=== PATIENT | female | born 1940 | race Caucasian/White ===

== ENCOUNTER 2016-11-29 14:14 | Outpatient (CLI) | payer MEDICARE, OTHER ==
[2016-11-29 19:09] LABS: BILIRUBIN,URINE NEGATIVE (NEGATIVE); PH,URINE 6.5 PH (5.0-7.5)
[2016-11-29 19:23] LABS: UR CULTURE IF IND INDICATED; WBC,URINE 0-3 /HPF (0-5)
== END 2016-11-29 14:15 | disposition home or self-care (01) ==
LOC: LAB.F 14:14
PROVIDERS: ATTEND Nurse Practitioner Family
DX: N39.0 Urinary tract infection, site not specified (principal)
CPT/HCPCS: 81001; 87086

== ENCOUNTER 2018-11-26 20:45 | Emergency (ER) | payer MEDICARE, OTHER ==
--- NOTE | 2018-11-26 21:37 | ED Physician Documentation ---
PD HPI URI - Stated complaint Stated Complaint: FEVER - Chief complaint Chief Complaint: Heent - History obtained from History obtained from: Patient - History of Present Illness Timing - onset: How many days ago (5-6) Timing duration: Days (5-6) Timing details: Abrupt onset (She states she got abruptly sick about 5 or 6 days ago with fevers cough general weakness and body aches. She had not been traveling. She has had persistent fevers and productive cough. She has had a sore throat as well. She denies any dyspnea on her wheeze. She has not had any vomiting or diarrhea. She denies headache.) Associated symptoms: Fever, Nasal congestion, Sore throat, Productive cough Contributing factors: No: Sick contact, Travel, Immunocompromised, COPD / asthma Improves by: Medication (nyquil and tylenol help) Worsened by: Activity Similar symptoms before: Has not had sx before Recently seen: Not recently seen Review of Systems Constitutional: reports: Fever, Chills, Myalgias, Fatigue Nose: reports: Congestion. denies: Rhinorrhea / runny nose Throat: reports: Sore throat Cardiac: denies: Chest pain / pressure Respiratory: reports: Cough. 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 HEENT: Tonsil/Adenoidectomy - Present Medications Home Medications: Ambulatory Orders Medication Instructions Recorded Confirmed Cephalexin [Keflex] 500 mg PO TID 7 Days capsule 03/03/15 Docusate Sodium 100Mg Capsule 100 mg PO BID #20 capsule 03/03/15 [Colace] Benzonatate [Tessalon Perle] 100 mg PO TID PRN #30 capsule 11/26/18 Cephalexin [Keflex] 500 mg PO TID #20 capsule 11/26/18 dexAMETHasone [Decadron] 4 mg PO DAILY #5 tablet 11/26/18 - Allergies Allergies/Adverse Reactions: Allergies Allergy/AdvReac Type Severity Reaction Status Date / Time No Known Drug Allergies Allergy Verified 11/26/18 20:54 - Social History Does the pt smoke?: No Smoking Status: Never smoker Does the pt drink ETOH?: No Does the pt have substance abuse?: No PD ED PE NORMAL - Vitals Vital signs reviewed: Yes - General General: Alert and oriented X 3, No acute distress, Well developed/nourished - HEENT HEENT: Ears normal, Pharynx benign - Neck Neck: Supple, no meningeal sign, No adenopathy - Cardiac Cardiac: RRR, No murmur - Respiratory Respiratory: Clear bilaterally - Abdomen Abdomen: Soft, Non tender - Derm Derm: Normal color, Warm and dry, No rash - Neuro Neuro: Alert and oriented X 3, No motor deficit, Normal speech Results - Vitals Vitals: Vital Signs - 24 hr 11/26/18 20:48 Temperature 37.1 C Heart Rate 75 Respiratory 18 Rate Blood Pressure 133/70 H O2 Saturation 95 Oxygen O2 Source Room air - Labs Labs: Laboratory Tests 11/26/18 20:56 Group A Strep Rapid Negative PD MEDICAL DECISION MAKING - ED course Complexity details: considered differential (Clinically low risk for pneumonia with normal lung sounds and adequate oxygenation. It does sound mainly bronchial. We discussed likely viral causes versus bacterial. We will treat her symptoms with Decadron and Tessalon.), d/w patient Departure - Departure Disposition: 01 Home, Self Care Clinical Impression: Upper respiratory infection Qualifiers: URI type: unspecified URI Qualified Code(s): J06.9 - Acute upper respiratory infection, unspecified Condition: Stable Record reviewed to determine appropriate education?: Yes Instructions: ED Upper Resp Infec Abx Tx Follow-Up: KENNEDI LYNNE MD [Primary Care Provider] - Prescriptions: Benzonatate [Tessalon Perle] 100 mg PO TID PRN #30 capsule PRN Reason: Cough Cephalexin [Keflex] 500 mg PO TID #20 capsule dexAMETHasone [Decadron] 4 mg PO DAILY #5 tablet Comments: Hydrated. Continue Tylenol or ibuprofen for fevers. Continue the NyQuil as you have been to help with sleep and cough. Add Decadron steroid for inflammation of the airways to improve breathing and decrease coughing. Add Tessalon if needed for cough and this should not be sedating. Add cephalexin antibiotic. Much of the time these types of illnesses are viral and the antibiotics will not help. Given your duration of symptoms and degree of fever, it does raise consideration of bacterial causes instead and so we can go with antibiotic as well.
[2018-11-26] MEDS ORDERED: CHERRY SYRUP 10 ML UDC PO ONE (21:53)
[2018-11-26] MEDS ORDERED: BENZONATATE 100 MG CAPSULE PO STA (21:53)
[2018-11-26] MEDS ORDERED: cephALEXin 250 MG CAPSULE PO STA (21:53)
[2018-11-26] MEDS ORDERED: DEXAMETHASONE 10 MG/ML VIAL PO STA (21:53)
[2018-11-26 22:39] VITALS: BP 91/53
== END 2018-11-26 22:30 | disposition home or self-care (01) ==
LOC: ED 20:45
DX: J06.9 Acute upper respiratory infection, unspecified (principal); I10 Essential (primary) hypertension
CPT/HCPCS: 87070; 87430; 99283; 99284; A9270

== ENCOUNTER 2020-01-10 07:00 | Outpatient (CLI) | payer MEDICARE, OTHER | END 2020-01-10 23:59 | disposition home or self-care (01) | LOC: LAB.R 07:00 | PROVIDERS: ATTEND Emergency Medicine | DX: R31.9 Hematuria, unspecified (principal) | CPT/HCPCS: 87086; 87181 ==

== ENCOUNTER 2020-12-25 08:00 | Outpatient (CLI) | payer MEDICARE, OTHER | END 2020-12-25 23:59 | disposition home or self-care (01) | LOC: LAB.S 08:00 | PROVIDERS: ATTEND Physician Assistant Medical | DX: R31.9 Hematuria, unspecified (principal) | CPT/HCPCS: 87086 ==

== ENCOUNTER 2021-08-14 16:56 | Emergency (ER) | payer MEDICARE, OTHER ==
--- NOTE | 2021-08-14 17:30 | ED Physician Documentation ---
History of Present Illness - Stated complaint Stated Complaint: BLURRY VISION,RT SHOULDER PX - Chief complaint Chief Complaint: Heent - Additonal information Additional information: 81-year-old female presents to the emergency department for evaluation of blurry vision. She reports that she had cataract surgery 3 years ago and has had normal vision since. Over the last week she has noticed progressively blurry vision in the left eye and over the last 2 days blurry vision in the right eye. No falls or trauma. No eye pain. She does have a history of headaches and migraines but none recently and no hemiplegic migraine history. She denies diplopia no fevers. 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 She denies loss of peripheral vision but she is unsure what the name of her brain disorder is. She is followed by ophthalmology at the [facility]. Review of Systems Constitutional: reports: Reviewed and negative Eyes: reports: Decreased vision. denies: Loss of vision, Photophobia, Discharge, Irritation Ears: reports: Reviewed and negative Nose: reports: Reviewed and negative Throat: reports: Reviewed and negative GI: reports: Reviewed and negative : reports: Reviewed and negative Skin: reports: Reviewed and negative Musculoskeletal: reports: Reviewed and negative Neurologic: denies: Generalized weakness, Focal weakness, Numbness, Difficulty speaking, Near syncope, Confused, Altered mental status, Headache, LOC Psychiatric: reports: Reviewed and negative PD PAST MEDICAL HISTORY - Past Medical History Cardiovascular: Hypertension Respiratory: CPAP use Endocrine/Autoimmune: None GI: None : None HEENT: None Psych: None Musculoskeletal: None Derm: None - Past Surgical History Past Surgical History: Yes Ortho: Arthroscopic surgery, 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 HEENT: Tonsil/Adenoidectomy - Present Medications Home Medications: Ambulatory Orders Medication Instructions Recorded Confirmed Cephalexin [Keflex] 500 mg PO TID 7 Days capsule 03/03/15 Docusate Sodium 100Mg Capsule 100 mg PO BID #20 capsule 03/03/15 [Colace] Benzonatate [Tessalon Perle] 100 mg PO TID PRN #30 capsule 11/26/18 cephALEXin [Keflex] 500 mg PO TID #20 capsule 11/26/18 dexAMETHasone [Decadron] 4 mg PO DAILY #5 tablet 11/26/18 - Allergies Allergies/Adverse Reactions: Allergies Allergy/AdvReac Type Severity Reaction Status Date / Time No Known Drug Allergies Allergy Verified 08/14/21 17:04 - Social History Does the pt smoke?: No Smoking Status: Never smoker Does the pt drink ETOH?: No Does the pt have substance abuse?: No - Immunizations Immunizations are current?: Yes PD ED PE EXPANDED - General General: Alert, No acute distress - HEENT HEENT: Atraumatic, PERRL, EOMI, Other (Right eye a 10 on foot nerve pressure was 20mmhg with 95% confidence interval sensitivity in the left pressure was 17mmh 95% CI sensitivity) - Eyes Eyes: PERRL, Normal accommodation, EOMI, Nl conjunctiva/sclera, Anterior chambers clear. No: Conj/sclera FB, Subconj hemorrhage - Neuro Neuro: Alert and Oriented X 3, CNII-XII intact, Cerebellar nl, Normal gait, Normal finger nose, Normal speech - GCS Eye Opening: Spontaneous Motor: Obeys Commands Verbal: Oriented Total: 15 Results - Vitals Vitals: Vital Signs - 24 hr 08/14/21 17:04 Temperature 36.5 C Heart Rate 65 Respiratory 16 Rate Blood Pressure 159/64 H O2 Saturation 97 Oxygen O2 Source Room air - Rads (name of study) CT head Radiology: Final report received (No significant intracranial abnormality) PD MEDICAL DECISION MAKING - ED course Complexity details: reviewed results, re-evaluated patient, considered differential ED course: 81-year-old female presents emergency department for evaluation of blurred vision in both eyes the left greater than right over the last week. She reports that she had cataract surgery in both her eyes about 3 years ago and has not required corrective lenses since. She also reports a history of a hole in her brain that is followed by both ophthalmology and neurology through the [facility]. She is had no loss of vision or diplopia. No focal neuro deficits. Her visual acuity here is 20/40 bilaterally. I did check her pressures with tonometry and did not find elevated pressures in either eye. We did complete a CT scan that did not show any acute findings. clinically pt does not present as an acute CVA. non elevated intraocular pressures. advised close f/u with team at [facility] Departure - Departure Disposition: 01 Home, Self Care Clinical Impression: Blurry vision, bilateral Condition: Stable Record reviewed to determine appropriate education?: Yes Comments: Sylvia you are seen today in the emergency department for blurry vision in both your eyes though left greater than right over the last week. We did check the pressures in both your eyes and they were essentially normal without any concer reva findings. Your visual acuity was 20/40 bilaterally. 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 The CT of your head today did not show any acute intracranial abnormalities. Your symptoms are not suggestive of a stroke. It is important you discuss this ED visit with both your doctors/specialist at the [facility]. If at any point you develop sudden severe headache, have loss of vision in 1 eye, slurred speech or facial droop and please return immediately to the ER for second evaluation.
--- NOTE | 2021-08-14 17:55 | CT Report ---
PROCEDURE: HEAD WO INDICATIONS: blurry vision TECHNIQUE: Noncontrast 4.5 mm thick angled axial sections acquired from the foramen magnum to the vertex. For r adiation dose reduction, the following was used: automated exposure control, adjustment of mA and/or kV according to patient size. COMPARISON: None. FINDINGS: Image quality: There is streak artifact seen through the skull base. CSF spaces: Basal cisterns are patent. No extra-axial fluid collections. Ventricles are normal in size and shape. Brain: No midline shift. No intracranial masses or hemorrhage. Belcher-white matter interface is norm al. Age-appropriate brain parenchymal volume loss and chronic small vessel ischemic change can be se en. There is a likely remote left parietal infarct, as on series 3 image 18. Skull and face: Calvarium and visualized facial bones are intact, without suspicious lesions. Sinuses: Visualized sinuses and mastoids are clear. IMPRESSION: No significant intracranial abnormality is seen on this noncontrast head CT. If it would be helpful for clinical management decision making, please consider a dedicated brain MRI (orbits protocol, without and with contrast) for further evaluation (assuming that there is no contr aindication). 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 Reviewed by: Crow Berry MD on 08/14/2021 4:54 PM [facility] Approved by: Crow Berry MD on 08/14/2021 4:54 PM MAIA Station ID: [id number]
[2021-08-14 18:21] VITALS: BP 135/59
== END 2021-08-14 18:21 | disposition home or self-care (01) ==
LOC: ED 16:56
DX: H53.8 Other visual disturbances (principal); I10 Essential (primary) hypertension
CPT/HCPCS: 99283; 99284

== ENCOUNTER 2021-11-16 08:00 | Outpatient (CLI) | payer MEDICARE, OTHER ==
--- NOTE | 2021-11-17 08:32 | XRAY Report ---
PROCEDURE: Shoulder 3 View RT INDICATIONS: PAIN IN RIGHT SHOULDER TECHNIQUE: 3 views of the shoulder were acquired. COMPARISON: None. FINDINGS: Bones: No fractures or dislocations. Mild articular osteophyte formation at the acromioclavicular an d glenohumeral joints. No suspicious bony lesions. Visualized ribs appear intact. Soft tissues: Focal region of calcification projects over the rotator cuff measuring roughly 23 mm. IMPRESSION: 1. 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 2. Probable calcific tendinitis of the rotator cuff. This could be confirmed with MRI, if clinically indicated. Reviewed by: Jeffery Siu MD on 11/17/2021 8:31 AM PDT Approved by: Jeffery Siu MD on 11/17/2021 8:31 AM PDT Station ID: [id number]
== END 2021-11-16 23:59 | disposition home or self-care (01) ==
LOC: DI.S 08:00
PROVIDERS: ATTEND Physician Assistant
DX: M19.011 Primary osteoarthritis, right shoulder (principal)

== ENCOUNTER 2022-10-01 08:00 | Outpatient (CLI) | payer MEDICARE, OTHER | END 2022-10-01 23:59 | disposition home or self-care (01) | LOC: LAB 08:00 | PROVIDERS: ATTEND Physician Assistant Medical | DX: N39.0 Urinary tract infection, site not specified (principal) | CPT/HCPCS: 87086; 87181 ==

== ENCOUNTER 2023-09-22 14:35 | Outpatient (CLI) | payer MEDICARE, OTHER | END 2023-09-22 14:36 | disposition home or self-care (01) | LOC: LAB.S 14:35 | PROVIDERS: ATTEND Nurse Practitioner | DX: N39.0 Urinary tract infection, site not specified (principal) | CPT/HCPCS: 87086 ==